=== PATIENT | male | born 1965 | race African-American/Black ===

== ENCOUNTER 2017-10-12 01:24 | Emergency (ER) | payer OTHER ==
[2017-10-12] MEDS ORDERED: NS 0.9% 1000 ML* 1,000 ML IV ONE (01:49)
[2017-10-12] MEDS ORDERED: Famotidine IV* 10 MG/ML 2 ML (20 mg) IV SLOW PU ONE (01:50)
[2017-10-12] MEDS ORDERED: methylPREDNISolone 125 MG* 2 ML VIAL IV ONE (01:50)
[2017-10-12 02:57] VITALS: BP 142/76
--- NOTE | 2017-10-12 03:01 | ED ---
Paris Hunt Abhishek, scribed for Lyric Sanches MD on 10/12/17 at 0159 . Complex/Multi-Sys Presentation - HPI Summary HPI Summary: This patient is a 51 year old M presenting to [facility] with a chief complaint of swollen lower lips since 1730. Pt is unable to talk normally. Pt states that his lips felt funny and started to occur at 2130. The medications reviewed and list given by EMS. The patient rates the pain 0/10 in severity. Symptoms aggravated by nothing. Symptoms alleviated by nothing. The air way is open. O2 stat shows 100% and also there is no change in voice. Pt reportedly does not take an TADEO inhibiter. - History Of Current Complaint Chief Complaint: EDAllergicReaction Time Seen by Provider: 10/12/17 01:35 Hx Obtained From: Patient Onset/Duration: Sudden Onset Severity Currently: None Associated Signs And Symptoms: Positive: Other - Swelling at lower lips PMH/Surg Hx/FS Hx/Imm Hx Endocrine/Hematology History: Reports: Hx Diabetes Psychiatric History: Reports: Hx Anxiety Infectious Disease History: No Infectious Disease History: Denies: Traveled Outside the [place] in Last 30 Days - Family History Known Family History: Positive: Unknown - Pt states he is unsure of any FHx - Social History Occupation: Unemployed - "prisoner" Lives: Alone Review of Systems Constitutional: Negative Eyes: Negative ENT: Negative Cardiovascular: Negative Respiratory: Other - Open air way Gastrointestinal: Negative Genitourinary: Negative Positive: Edema - Lower lip Skin: Negative Neurological: Negative Psychological: Normal All Other Systems Reviewed And Are Negative: Yes Physical Exam - Summary Physical Exam Summary: VITAL SIGNS: Reviewed. GENERAL: ~Patient is an obese (MALE) who is lying comfortable in the stretcher. Patient is not in any acute respiratory distress. Voice is okay HEAD AND FACE: No signs of trauma. No ecchymosis, hematomas or skull depressions. No sinus tenderness. EYES: PERRLA, EOMI x 2, No injected conjunctiva, no nystagmus. EARS: Hearing grossly intact. Ear canals and tympanic membranes are within normal limits. MOUTH: Edema of the lower lipm No drooling NECK: Supple, trachea is midline, no adenopathy, no JVD, no carotid bruit, no c- spine tenderness, neck with full ROM. CHEST: Symmetric, no tenderness at palpation LUNGS: Clear to auscultation bilaterally. No wheezing or crackles. CVS: Regular rate and rhythm, S1 and S2 present, no murmurs or gallops appreciated. ABDOMEN: Soft, non-tender. No signs of distention. No rebound no guarding, and no masses palpated. Bowel sounds are normal. EXTREMITIES: FROM in all major joints, no edema, no cyanosis or clubbing. NEURO: Alert and oriented x 3. No acute neurological deficits. Speech is normal and follows commands. SKIN: Dry and warm Triage Information Reviewed: Yes Vital Signs On Initial Exam: Initial Vitals Temp Pulse Resp BP Pulse Ox 99.1 F 99 24 166/84 95 10/12/17 01:34 10/12/17 01:34 10/12/17 01:34 10/12/17 01:34 10/12/17 01:34 Vital Signs Reviewed: Yes Diagnostics - Vital Signs Vital Signs Temp Pulse Resp BP Pulse Ox 10/12/17 01:34 99.1 F 99 24 166/84 95 - Laboratory Lab Statement: Any lab studies that have been ordered have been reviewed, and results considered in the medical decision making process. Complex Multi-Symp Course/Dx Course Of Treatment: The pt is a 51 M presenting to the [facility] with a chief complaint of lower lip edema. The pt reports the symptoms began at 1730. Pt is also a prisoner and was escourted by police. He does not take a TADEO inhibitor. Upon reevaluation, the pt's condition has improved and the swelling has decreased. The pt will be discharged to a correctional facility and escourted by police. The dx will be angioedema. We recommend taking prednisone 60 mg for one week and for the pt to be observed in the [facility] for 24 hours. - Diagnoses Provider Diagnoses: Angioedema Discharge - Discharge Plan Condition: Stable Disposition: OTHER Discharge Disposition Comment: Correctional facility Patient Education Materials: Angioedema (ED) Referrals: Crystal THOMAS,Francois Hendrix [Primary Care Provider] - Additional Instructions: RETURN TO EMERGENCY DEPARTMENT FOR ANY NEW OR WORSENING SYMPTOMS Follow up with Correctional facility medical physician within 2 to 3 days. We recommend prednisone 60 mg for the pt for one week and pt to be observed in the [facility] for the next 24 hours. The documentation as recorded by the [place] peoples Abhishek accurately reflects the service I personally performed and the decisions made by me, Lyric Sanches MD.
== END 2017-10-12 03:27 ==
LOC: ED 01:24
DX: T78.3XXA Angioneurotic edema, initial encounter (principal)
CPT/HCPCS: 96374; 96375; 99283; J2930